=== PATIENT | female | born 1985 | race Caucasian/White ===

== ENCOUNTER 2023-07-05 06:00 | Emergency (ER) | payer OTHER ==
--- NOTE | 2023-07-05 06:13 | ED Physician Documentation ---
History of Present Illness - Stated complaint Stated Complaint: ALLERGIC REACTION - Chief complaint Chief Complaint: Wound - History obtained from History obtained from: Patient - Additonal information Additional information: HPI from patient. Patient complains of pruritic exanthem predominantly on bilateral upper extremities, with fewer lesions on abdomen and back. She is also reporting generalized facial swelling. Denies history of similar symptoms. 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 She has no obvious exposures such as new foods, medications, stings or bites. She denies shortness of breath, tongue swelling, sensation of throat swelling/closing, lightheadedness Review of Systems Respiratory: reports: Reviewed and negative GI: reports: Reviewed and negative Skin: reports: Rash PD PAST MEDICAL HISTORY - Past Medical History Past Medical History: No - Past Surgical History Past Surgical History: Yes /SCHEDULER MAINTENANCE: section - Present Medications Home Medications: Ambulatory Orders Medication Instructions Recorded Confirmed EPINEPHrine [Epinephrine] 0.3 mg IJ ONCE PRN #2 each 07/05/23 predniSONE [Deltasone] 40 mg PO DAILY 4 Days #8 tablet 07/05/23 - Allergies Allergies/Adverse Reactions: Allergies Allergy/AdvReac Type Severity Reaction Status Date / Time No Known Drug Allergies Allergy Verified 07/05/23 06:08 - Social History Does the pt smoke?: No Smoking Status: Never smoker PD ED PE NORMAL - Vitals Vital signs reviewed: Yes - General General: Alert and oriented X 3, No acute distress, Well developed/nourished - HEENT HEENT: Other (subtle facial swelling (lips, bilateral periorbital). no intraoral edema, airway is widely patent) - Cardiac Cardiac: RRR, No murmur - Respiratory Respiratory: No respiratory distress, Clear bilaterally PD ED PE EXPANDED - Derm Derm: Urticaria (multiple urticaria on BUE with fewer lesions noted on back, chest and abdomen) Results - Vitals Vitals: Vital Signs - 24 hr 07/05/23 07/05/23 06:05 06:44 Temperature 36.2 C L Heart Rate 90 88 Respiratory 16 16 Rate Blood Pressure 127/73 125/71 O2 Saturation 100 98 Oxygen O2 Source Room air PD Medical Decision Making - ED course Complexity details: considered differential, d/w patient ED course: Patient presents with facial swelling and hives/urticaria, unknown etiology. She is in no distress, lungs are clear to auscultation bilaterally. Airways widely patent. She is given 50 mg of Benadryl to take home (patient drove to ED). She is given 40 mg prednisone p.o. in the ED as well as 20 mg Pepcid p.o. I instructed her to continue to take Benadryl 25mg-50mg Q 6 hours PRN symptoms as well as QD pepcid until symptoms resolve. Additionally, I am electronically submitting a prescription for daily prednisone (40 mg) for 4 more days, along with a prescription for EpiPen, to her pharmacy of choice. Return precautions are discussed. I advised her to follow-up with her PCP, next available appointment, if the symptoms have not entirely resolved within the next 1 to 2 days. Departure - Departure Disposition: 01 Home, Self Care Clinical Impression: Allergic reaction Condition: Good Instructions: ED Allergic Reaction General Other Prescriptions: predniSONE [Deltasone] 40 mg PO DAILY 4 Days #8 tablet EPINEPHrine [Epinephrine] 0.3 mg IJ ONCE PRN #2 each PRN Reason: Anaphylaxis Comments: I have electronically submitted a prescription for prednisone (steroid) to the [facility] pharmacy in [place] and a prescription for EpiPen to the [facility] pharmacy in [place]. Use the EpiPen if you develop severe symptoms of anaphylaxis (shortness of breath, wheezing, tongue swelling, sensation of throat swelling/closing, lightheadedness/sensation that you might pass out). For your current symptoms (itching, rash, facial swelling), in addition to the prednisone, you can also take Benadryl 25 mg to 50 mg orally every 6 hours as needed as well as Pepcid 20 mg orally once per day until the symptoms resolve. The benadryl and pepcid are [id number] medications and thus no prescription is necessary. Discharge Date/Time: 07/05/23 06:44
[2023-07-05] MEDS: FAMOTIDINE 20 MG TABLET PO STA (06:36)
[2023-07-05] MEDS: diphenhydrAMINE 25 MG CAPSULE PO STA (06:36)
[2023-07-05] MEDS: predniSONE 20 MG TABLET PO STA (06:36)
[2023-07-05 06:46] VITALS: BP 125/71; O2SAT 98
== END 2023-07-05 06:44 | disposition home or self-care (01) ==
LOC: ED 06:00
DX: T78.40XA Allergy, unspecified, initial encounter (principal)
CPT/HCPCS: 99283; A9270; J7512

== ENCOUNTER 2023-07-06 05:51 | Emergency (ER) | payer OTHER ==
[2023-07-06 06:13] VITALS: O2SAT 100
[2023-07-06] MEDS: FAMOTIDINE 20 MG TABLET PO STA (07:00)
--- NOTE | 2023-07-06 07:16 | ED Physician Documentation ---
History of Present Illness - Stated complaint Stated Complaint: ALLERGIC REACTION - Chief complaint Chief Complaint: Allergic Rx - History obtained from History obtained from: Patient - Additonal information Additional information: The patient returns to the emergency department with chief complaint of recurrence of urticaria and itching. She was seen yesterday for an allergic reaction to an unknown substance and started on Benadryl and steroids. 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 She states that the rash seemed a little bit better but that this morning when she got up, it was back. She denies any swelling in her oropharynx. She is not otherwise feeling ill. She has never had an allergic reaction prior to this and she is wondering if she should be treated in any other way. No other complaints at this time. 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 HEENT: Other - Present Medications Home Medications: Ambulatory Orders Medication Instructions Recorded Confirmed EPINEPHrine [Epinephrine] 0.3 mg IJ ONCE PRN #2 each 07/05/23 07/06/23 Famotidine [Pepcid] 20 mg PO DAILY PRN 07/06/23 07/06/23 diphenhydrAMINE [Benadryl] 25 - 50 mg PO Q6HR PRN 07/06/23 07/06/23 predniSONE [Deltasone] 40 mg PO BID 07/06/23 07/06/23 - Allergies Allergies/Adverse Reactions: Allergies Allergy/AdvReac Type Severity Reaction Status Date / Time No Known Drug Allergies Allergy Verified 07/06/23 06:03 - Social History Does the pt smoke?: No Smoking Status: Never smoker Does the pt drink ETOH?: No Does the pt have substance abuse?: No - Immunizations Immunizations are current?: Yes - POLST Patient has POLST: No PD ED PE NORMAL - Vitals Vital signs reviewed: Yes - General General: Alert and oriented X 3, No acute distress, Well developed/nourished - HEENT HEENT: Atraumatic, PERRL, EOMI, Moist mucous membranes, Other (No oropharyngeal edema.) - Neck Neck: Supple, no meningeal sign - Cardiac Cardiac: RRR, No murmur - Respiratory Respiratory: No respiratory distress, Clear bilaterally - Abdomen Abdomen: Soft, Non tender, Non distended - Derm Derm: Normal color, Warm and dry, Other (Diffuse urticaria over the patient's extremities and buttocks. Few lesions on her face as well.) - Extremities Extremities: No deformity - Neuro Neuro: Other (Grossly intact.) - Psych Psych: Normal mood, Normal affect Results - Vitals Vitals: Oxygen O2 Source Room air PD Medical Decision Making - ED course Complexity details: considered differential, d/w patient ED course: I discussed with the patient that it is not unusual for allergic symptoms to wax and wane for a few days. This is why she has been given 3-day prescriptions for her Pepcid and her steroids. I given her a dose of Pepcid here. The patient has already taken Benadryl and her steroid this morning. She does not have any concerning symptoms such as oropharyngeal edema or any shortness of breath or wheezing and as such, she just needs to continue symptomatic management. I have discussed this with her and that she may want to consider seeing her primary doctor and getting a referral to an egg tester, should her symptoms become recurrent. Patient is stable for discharge home. Departure - Departure Disposition: 01 Home, Self Care Clinical Impression: Allergic urticaria Condition: Stable Instructions: ED Allergic Reaction General Other Forms: PCP List, Activity restrictions Discharge Date/Time: 07/06/23 07:21
[2023-07-06 07:24] VITALS: BP 103/61
== END 2023-07-06 07:21 | disposition home or self-care (01) ==
LOC: ED 05:51
DX: L50.0 Allergic urticaria (principal)
CPT/HCPCS: 99282; 99283; A9270